=== PATIENT | male | born 1995 | race Caucasian/White ===

== ENCOUNTER 2024-01-06 19:31 | Emergency (ER) | payer SELFPAY ==
[2024-01-06 19:33] VITALS: BP 126/82
[2024-01-06 19:56] VITALS: BMI 22.4
[2024-01-06 20:18] LABS: COVID-19 Antigen Negative (Negative)
[2024-01-06] MEDS: DECADRON 10 MG PO (20:43)
[2024-01-06] MEDS: DUONEB 3 ML INH (20:45)
--- NOTE | 2024-01-06 22:19 | ED.GENMED ---
History of Present Illness
General
Chief Complaint: Cold/Flu/URI Symptoms
Source: patient and family
Exam Limitations: none
Time Seen by Provider: 01/06/24 19:57
Nursing documentation reviewed up to this point in time: agreed with
Travel History
Have you had any contact with someone who has COVID-19?: No
Do you have any symptoms of coronavirus? Fever > 100 degrees, chills, cough, shortness of breath, sore throat, loss of taste or smell, muscle aches, or headache?: No
History of Present Illness
History of Present Illness:
28-year-old male with past medical history of anemia presenting to the emergency department concerns of 2 days of upper respiratory symptoms congestion cough and some pressure to his face as well as fever took Motrin last a few hours prior to
arrival to the emergency department. Denies any chest pain shortness of breath
Past History
Past History
ED Past Medical History: None
ED Past Surgical History: None
Patient has exhibited threatening behavior?: No
Social History
Tobacco: Non-smoker
Personal: Single
Living: with family
Employment: Employed
Review of Systems
Review of Systems
Allergies reviewed?: Yes
All Other Systems: ROS reviewed and negative except as documented in HPI and ROS
Phy Exam
Physical Exam
Physical Exam:
GENERAL: Alert , in no apparent distress
EYE: pupils equal and reactive
NECK: Supple, no significant adenopathy.
ENT: Swollen boggy nasal turbinates o/p clr, mmm.
CARDIAC: Regular rate and rhythm .
LUNGS:
ABDOMEN: Soft, without focal tenderness, no r/g, no cvat
NEUROLOGICAL: Alert and oriented, no focal neuro deficits
SKIN: Warm and dry, skin intact.
MUSCULOSKELETAL: No edema, well perfused.
PSYCH: Normal and appropriate interaction.
Very slight end expiratory wheezing otherwise good air movement
Course
Orders/Labs/Results
Orders:
Orders
01/06/24 19:57
CXR2 [CR Chest - 2 Views ] Urgent
Comment:
Reason For Exam: SOB
01/06/24 19:58
COVID-19 Antigen Urgent
Source: Nasal Swab
Influenza A+B Rapid Molecular Urgent
PRIYANK Source: Nasal Swab
Specimen Description:
01/06/24 20:40
Dexamethasone [Decadron] 10 mg PO NOW STA
Ipratropium/Albuterol Sulfate [Duoneb] 3 ml INH R NOW ONE
Vital Signs
Initial and Last Documented VS:
Initial Vital Signs
Temp Pulse Resp BP Pulse Ox
99.8 F 90 30 126/82 99
01/06/24 19:33 01/06/24 19:33 01/06/24 19:33 01/06/24 19:33 01/06/24 19:33
Last Documented Vital Signs
Temp Pulse Resp BP Pulse Ox
99.8 F 90 30 126/82 98
01/06/24 19:33 01/06/24 19:33 01/06/24 19:33 01/06/24 19:33 01/06/24 19:55
MDM/Problems Addressed
MDM/Problems Addressed:
28-year-old male presenting to the emergency department today with concerns of upper respiratory symptoms over the past 2 days. Does have a very slight end expiratory wheeze on examination was given a DuoNeb and steroids with improving symptoms.
Also was there was some facial pressure and also had intermittent fever seems less likely to be acute sinusitis. Otherwise patient doing well here stable for outpatient management return precautions given.
*Critical Care Note
Total Time (30-74mins, 75-104mins- exclusive of procedures): Not Applicable
ED Attending Note
-
Portions of this chart may have been created with voice recognition software.� Occasional wrong word or��sound alike� substitutions may have occurred due to the inherent limitations of voice recognition software.
Discharge Plan
Departure
Patient Disposition: Home (Routine Discharge)
Date of Disposition: 01/06/24
Time of Disposition: 22:21
Patient with high blood pressure during this ER visit?: No
Condition: Good
Covid-19: Not Applicable
Discharge Problem:
Acute bronchitis
Instructions: Acute Bronchitis, Adult (DC)
Prescriptions:
New
prednisone 20 mg tablet
40 mg PO DAILY 3 Days Qty: 6 0RF
fluticasone propionate [Flonase Allergy Relief] 50 mcg/actuation spray,suspension
2 spray intranasal DAILY Qty: 16 0RF
amoxicillin-pot clavulanate 875-125 mg tablet
1 tab PO BID 7 Days Qty: 14 0RF
No Action
amoxicillin-pot clavulanate 1 TABLET tablet
1 tab PO Q12 Qty: 14 0RF
clindamycin HCl 300 MG capsule
300 mg PO Q6 Qty: 39 0RF
Referrals:
NONE,* [Family Provider] -
Activity Restrictions/Additional Instructions:
You can to the emergency department today with concerns of symptoms consistent with viral syndrome he also had a small amount of wheezing. Please take the prednisone 40 mg once daily for the next 3 days and use Flonase as well. Please follow close
with the primary care doctor. Return to the emergency department for any worsening, new or concerning symptoms.
Interventions
Interventions:
*Risk Screen - Suicide Last Done: 01/06/24 19:33
*General Assessment Last Done: 01/06/24 19:56
*Neglect/Abuse Screening Last Done: 01/06/24 19:36
ED- Fall Risk Assessment Last Done: 01/06/24 19:55
*ED COVID-19 Vaccine History Last Done: 01/06/24 19:56
ED- Pulmonary Assessment Last Done: 01/06/24 19:55
Discharge Date and Time
Print Language: RUSSIAN
== END 2024-01-06 22:32 | disposition home or self-care (01) ==
LOC: EMR 19:31
PROVIDERS: EMERGENCY PHYSICIAN Emergency Medicine
DX: J20.9 Acute bronchitis, unspecified (principal); D64.9 Anemia, unspecified
CPT/HCPCS: 99283; 94640; 71046; 87502; 87811